=== PATIENT | female | born 1935 | race Caucasian/White ===

== ENCOUNTER 2019-06-14 12:02 | Emergency (ER) | payer MEDICAID ==
[~2019-06-14] VITALS: Ht 157.5 cm; Wt 45.0 kg
[2019-06-14 12:03] VITALS: BP 112/64
--- NOTE | 2019-06-14 12:14 | NUR ---
PT GOKUL FROM [facility] WITH REPORT OF DARK STOOL PER STAFF. UPON ARRIVAL, EMS STATES THERE WAS A LARGE BOTTLE OF PEPTO BISMOL IN HER RESTROOM, AND STOOL INTOILET APPEARED "BLACK WTIH A GREEN TINGE." UPON REVIEW OF MEDICATIONS, PT TAKES IRON SUPPLEMENT. PT A&OX2, WHICH IS BASELINE, AND HAS NO MEDICAL COMPLAINTS AND DOESN'T KNOW WHY SHE IS HERE. PT CONNECTED TO MONITORS. VSS. WARM BLANKET PROVIDED FOR COMFORT. RESIDENT TO BS FOR ASSESSMNET. THIS RN ASSISTED WITH GUAIAC SAMPLE. AWAITING FURTHER ORDERS.
[2019-06-14] MEDS ORDERED: CARV3.122 PO (12:30)
[2019-06-14] MEDS ORDERED: CHOL10003 PO (12:30)
[2019-06-14] MEDS ORDERED: AMLO10TA8 PO (12:30)
[2019-06-14] MEDS ORDERED: DOCU-131 PO (12:30)
[2019-06-14] MEDS ORDERED: TRAZ-175 PO (12:30)
[2019-06-14] MEDS ORDERED: CITA10TA4 PO (12:30)
[2019-06-14] MEDS ORDERED: MUCINEX PO (12:30)
[2019-06-14] MEDS ORDERED: FURO20TA3 PO (12:30)
[2019-06-14] MEDS ORDERED: FERR324T5 PO (12:30)
[2019-06-14] MEDS ORDERED: LOSA50TA14 PO (12:30)
[2019-06-14 13:23] LABS: ALBUMIN 3.6 g/dL (3.4-5.0); ANION GAP 4 mmol/L (5-15); CALCIUM 9.3 mg/dL (8.5-10.1); CHLORIDE 108 mmol/L (98-107); CREATININE 1.04 mg/dL (0.55-1.02)
--- NOTE | 2019-06-14 13:35 | NUR ---
LAB TO REDRAW CBC FOR CLOTTING.
[2019-06-14 14:20] LABS: BASOPHILS # (AUTO) 0.05 x10^3/uL (0-0.1); BASOPHILS % (AUTO) 1 % (0-1); EOSINOPHILS # (AUTO) 0.18 x10^3/uL (0-0.4); EOSINOPHILS % (AUTO) 2 % (1-7); LYMPHOCYTES # (AUTO) 1.03 x10^3/uL (1-3.4); LYMPHOCYTES % (AUTO) 11 % (22-44); MD NO; MEAN CORPUSCULAR HEMOGLOBIN 32.4 pg (27.0-34.8); MEAN CORPUSCULAR HGB CONC 33.7 g/dL (32.4-35.8); MEAN CORPUSCULAR VOLUME 96.2 fL (80-100); MONOCYTES # (AUTO) 0.68 x10^3/uL (0.2-0.8); MONOCYTES % (AUTO) 7 % (2-9); NEUTROPHILS # (AUTO) 7.72 x10^3/uL (1.8-6.8); NEUTROPHILS % (AUTO) 80 % (42-75); PLATELET COUNT 239 x10^3/uL (130-400); RED BLOOD COUNT 4.49 x10^6/uL (3.82-5.3); RED CELL DISTRIBUTION WIDTH 15.1 % (9.6-15.2)
--- NOTE | 2019-06-14 14:27 | NUR ---
ALL RESULTS BACK AT THIS TIME. CHART UP FOR RECHECK. PT REFUSING MONITORING WUIPMENT AND CS. Addendum: 06/14/19 at 1427 by [email or web address] ALL RESULTS BACK AT THIS TIME. CHART UP FOR RECHECK. PT REFUSING MONITORING EQUIPMENT AND VS.
--- NOTE | 2019-06-14 15:40 | NUR ---
LEONARD ALVARADO RN: [employer] ARRANGED FOR TRANSPORTATION FOR PT BACK TO HOME.
== END 2019-06-14 16:11 | disposition home or self-care (01) ==
LOC: ED 14:08
DX: K92.1 Melena (principal); I10 Essential (primary) hypertension
CPT/HCPCS: 80048; 82040; 85025; 99283